=== PATIENT | female | born 1995 | race Caucasian/White ===

== ENCOUNTER 2019-05-08 23:24 | Emergency (ER) | payer OTHER ==
[~2019-05-08] VITALS: Ht 152.4 cm; Wt 93.0 kg
[2019-05-08 23:28] VITALS: BP 118/59
--- NOTE | 2019-05-08 23:45 | NUR ---
PT BIB FRIEND C/O ALLERGIC REACTION. PT STATES SHE WAS DRIVING IN HER CAR, SUDDEN ONSET OF URTICARIA, PT TOOK A BENDRYL AND THEN IM OF EPI AFTER SHE FELT LIKE HER THROAT WAS CLOSING UP. PT STATES SHE HAS LOTS OF ALLERGIES, LAST OUTBREAK WAS 3 MONTHS AGO; -INTUBATION. PT CAN NOT RECALL TO WHAT HER ALLERGIC REACTION IS FROM THIS TIME. PT STATES 10/10 PAIN. PT SPEAKING IN CLEAR AND COMPLETE SENTENCES; BREATHING EQUAL AND UNLABORED; +NAUSEAM +ABD CRAMPING. PT ATTACHED TO BEDSIDE CARDIAC MONTIOR. SAFETY PRECAUTIONS IN PLACE. PENDING ERMD EVAL. WILL CONTINUE TO MONITOR. PMH: DENIES
[2019-05-09] MEDS ORDERED: NACL 0.9% 1,000 ML IV ONE (00:13)
[2019-05-09] MEDS ORDERED: FAMOTIDINE 20 MG/2 ML VIAL IVP ONE (00:15)
[2019-05-09] MEDS ORDERED: methylPREDNISolone SS 125 MG in WATER STERILE 2 ML IV ONE (00:15)
--- NOTE | 2019-05-09 00:49 | NUR ---
Dr. Rubalcava evaluating patient at bedside.
[2019-05-09] MEDS ORDERED: ACETAMINOPHEN EXTRA STRENGTH 500 MG TAB PO ONE (01:10)
--- NOTE | 2019-05-09 01:15 | NUR ---
PT BREATHING EQUAL AND UNLABORED, TALKING ON CELL PHONE. POSITIONED FOR COMFORT.
--- NOTE | 2019-05-09 01:47 | NUR ---
Patient discharged with v/s stable. Written and verbal after care instructions given and explained. Patient alert, oriented and verbalized understanding of instructions. Ambulatory with steady gait. All questions addressed prior to discharge. ID band removed. Patient advised to follow up with PMD. Rx of EPIPEN, PREDNISONE, PEPCID, DIPHENHYDRAMINE WAS given. Patient educated on indication of medication including possible reaction and side effects. Opportunity to ask questions provided and answered. PT STATED SHE HAD RELIEF FROM THE SWELLING AND ITCHING. PT THROAT NO LONGER FELT TIGHT AND SWOLLEN. PT WAS ABLE TO BREATH WITHOUT DIFFICULTY. PT RASH HAD DECREASED TO A MINIMUM PRIOR TO D/C
[2019-05-09 01:49] VITALS: BP 113/61
== END 2019-05-09 01:47 | disposition home or self-care (01) ==
LOC: MED 23:24
DX: L50.0 Allergic urticaria (principal); Z91.013 Allergy to seafood; Z91.018 Allergy to other foods; Z88.8 Allergy status to other drugs, medicaments and biological substances
CPT/HCPCS: 96374; 96375; 99283; J2930; J3490; J7030